=== PATIENT | female | born 1935 | race Caucasian/White ===

== ENCOUNTER 2024-07-06 16:55 | Inpatient (IN) | payer MEDICARE, BC, SELFPAY ==
[2024-07-06 18:01] VITALS: BP 167/68; PULSE 74; RESP 16; TEMP 37.1; O2SAT 91; BMI 24.6
[2024-07-06 20:15] VITALS: PULSE 74; RESP 16; O2SAT 91
[2024-07-06] MEDS: Senna/Docusate Sodium 1 Tablet 2 TABLET PO (20:38)
[2024-07-06] MEDS: Fluticasone/Salmeterol 232-14 Inhaler 1 PUFF INHALATION (20:38)
--- NOTE | 2024-07-06 20:39 | EX.PCM.HP.RE ---
HPI - General General Date of Admission: 07/06/24 Date of Service: 07/06/24 Chief Complaint: Here for 3 hours daily rehabilitation. [facility] Narrative 07/03/2024 KARMA FALL, is a 89 Female with a pertinent history of COPD, MVR, intracranial aneurysm x 2 presenting with vomiting, dizziness, and vision changes concerning for acute CVA following elective cardiac catheterization. Patient had elective cardiac catheterization revealing nonobstructive coronary artery disease. In recovery, she began having dizziness, blurred vision, right sided headache, and vomiting with associated marked hypertension, peak blood pressure 246/133. Patient had nystagmus. Benadryl and Compazine not helpful, stroke alert called. Transferred to [facility] ER for evaluation. NIHSS 2, neurology consulted. CT head negative for bleeding, CTA head/neck negative LVO. TNK not given because working diagnosis was NOT a stroke. Patient diagnosed with acute right cerebellar stroke. Blood pressure well controlled with hypertension medications. No anticoagulation due to history of intracranial aneurysm. Aspirin, Statin for CAD. CKD stage 3, monitored. 07/06/2024 Admit to for 3 hours daily rehabilitation, strengthening, prior to discharge home alone. [facility] Medical History (Updated 07/06/24 @ 20:[address] Harrison Brooke MD) History of left heart catheterization Aneurysm Stroke/cerebrovascular accident Coronary artery disease COPD (chronic obstructive pulmonary disease) Hypothyroidism Kidney disease Hypertension Home Medications ?Medication ?Instructions ?Recorded ?Last Taken ?Type albuterol sulfate 2.5 mg/3 mL 2.5 mg inhalation 4X/DAY PRN PRN 07/06/24 Unknown History (0.083 %) solution for nebulization wheezing amlodipine 5 mg tablet 5 mg PO DAILY BP 07/06/24 07/06/24 History ascorbic acid (vitamin C) 500 mg 500 mg PO DAILY Supplement 07/06/24 07/06/24 History capsule aspirin 81 mg capsule 81 mg PO DAILY Heart health 07/06/24 07/06/24 History cholecalciferol (vitamin D3) 50 50 mcg PO DAILY supplement 07/06/24 Unknown History mcg (2,000 unit) capsule fluticasone propionate 230 2 puff inhalation BID SOB 07/06/24 Unknown History mcg-salmeterol 21 mcg/actuation HFA inhaler (Advair HFA) lisinopril 10 mg tablet 10 mg PO DAILY BP 07/06/24 07/06/24 History rosuvastatin 20 mg tablet (Crestor) 20 mg PO DAILY cholesterol 07/06/24 07/05/24 History vitamin B complex (Vitamins B 1 cap PO DAILY supplement 07/06/24 Unknown History Complex capsule) Allergy/AdvReac Type Severity Reaction Status Date / Time Sulfa (Sulfonamide Allergy Rash Verified 07/06/24 18:40 Antibiotics) (sulfa drugs) Egg Derived (eggs - derived) AdvReac gi upset Verified 07/06/24 18:40 Family History (Updated 07/06/24 @ 20:[address] Harrison Brooke MD) Mother Breast cancer Father Heart disease Brother Myocardial infarction Brother Brain cancer Surgical History (Updated 07/06/24 @ 18:35 by Beto Berry) History of cholecystectomy H/O: hysterectomy Social History (Updated 07/06/24 @ 20:[address] Harrison Brooke MD) household members: none Smoking Status: Former smoker alcohol intake: never substance use type: does not use ROS Constitutional Constitutional: Denies chills, fever(s) or weight gain ENT HEENT: Denies headache(s), nasal congestion or nasal discharge Cardiovascular Cardiovascular: Denies chest pain or palpitations Respiratory/Chest Respiratory/Chest: Denies cough, excessive phlegm production or shortness of breath with exertion Gastrointestinal Gastrointestinal: Denies abdominal pain, nausea or vomiting Genitourinary Genitourinary: Denies dysuria Musculoskeletal Musculoskeletal: Denies joint pain or joint swelling Integumentary Integumentary: Denies rash or wounds Neurologic Neurologic: Reports headache(s); Denies focal weakness, numbness or tingling Psychiatric Psychiatric: Denies anxiety, auditory hallucinations, depression, homicidal ideation or suicidal ideation Vital Signs Vital Signs Vital Signs: 07/06/24 18:01 Temperature 98.8 F Temperature Source Oral Pulse Rate 74 Respiratory Rate 16 Blood Pressure 167/68 H Blood Pressure Mean 101 Blood Pressure Source Monitor Blood Pressure Position Semi-Fowlers Blood Pressure Location Left Arm Pulse Ox 91 Oxygen Delivery Method Room Air Weight Weight: 57.2 kg Body Mass Index (BMI) 24.6 Indicators for Scoring Admitted with or Primary Diagnosis of CVA/Stroke: Yes Hx of CVA/Stroke: No Modified Ashok Score MRS Score at time of Evaluation: 3-Moderate disability NIHSS NIHSS 1a. Level of Consciousness: Alert; keenly responsive 1b. LOC Questions: Answers BOTH questions correctly. 1c. LOC Commands: Performs both tasks correctly. 2. Best Gaze: Normal 3. Visual: No visual loss 4. Facial Palsy: Normal symmetrical movements 5a. Left Arm: No drift; arm holds 90 (or 45) degrees for full 10 seconds 5b. Right Arm: No drift; arm holds 90 (or 45) degrees for full 10 seconds 6a. Left Leg: No drift; leg holds 30-degree position for full 5 seconds 6b. Right Leg: No drift; leg holds 30-degree position for full 5 seconds 7. Limb Ataxia: Absent 8. Sensory: Normal; no sensory loss 9. Best Language: No aphasia; normal 10. Dysarthria: Normal 11. Extinction and Inattention: No abnormality Total: 0 Stroke Questions Stroke Team Activated: Yes a.Reviewed Inclusion/Exclusion criteria: Yes Was Patient considered for Endovascular Intervention?: No IV Thrombolytic Administered: No No contraindications from thrombolytic administration: No Risks, Benefits, Alternatives Discussed: Yes Not given: Patient refusal: No Physical Exam Const alert General Appearance: cooperative HEENT normocephalic Eyes PERRL and EOMs intact bilaterally Neck supple, no JVD and no carotid bruits Resp normal respiratory effort, normal air movement and clear to auscultation bilaterally Cardio regular rate and regular rhythm GI normal to inspection, nondistended, normoactive bowel sounds, non-tender and non-distended Extremity normal capillary refill General Extremity: Negative for edema Skin no rashes or lesions noted General Skin Exam: no breakdown Psych affect normal Appearance: appropriate Assessment & Plan Assessment/Plan (1) Debility: (2) Stroke/cerebrovascular accident: (3) (HFpEF) heart failure with preserved ejection fraction: (4) Hyperlipidemia: (5) Intracranial aneurysm: (6) GERD (gastroesophageal reflux disease): (7) Chronic kidney disease, stage 3a: (8) COPD (chronic obstructive pulmonary disease): (9) Raynaud phenomenon: (10) Hypertensive urgency: (11) Hypothyroidism: (12) Mitral regurgitation: PLAN: Plan 89 year old female with below past medical history hospitalized for right cerebellar stroke, hypertensive urgency, after elective cardiac catheterization, admitted to for 3 hours daily rehabilitation, strengthening, prior to discharge home alone. Debility - PT/OT/ST. Pain - Tylenol 1000mg q6 prn pain (1-10). Bowel - senna/colace 2 tablets bid, Dulcolax 10mg pr x 1 prn, MOM 30mL po x 1 prn. Stroke - Aspirin 81mg daily. Hypertension - Lisinopril 10mg daily, Amlodipine 5mg daily. COPD - Fluticasone/Salmeterol 232-14 1 puff q12, Albuterol 2.5mg 4x/day prn. Vitamin C deficiency - Vitamin C 500mg daily. Vitamin D deficiency - D3 50mcg daily Vitamin B12 deficiency - B12 500mcg daily. Hyperlipidemia - Atorvastatin 40mg qhs.
[2024-07-07 00:45] VITALS: BMI 24.6
[2024-07-07 05:12] VITALS: BP 134/67; PULSE 65; RESP 16; TEMP 36.7; O2SAT 94
[2024-07-07 06:04] LABS: Absolute Neutrophil Count 4.6 X10^3/uL (2.0-7.7); Basophil# 0.04 X10^3/uL; Basophil% 0.5 % (0-1); Eosinophil# 0.25 X10^3/uL; Eosinophils% 3.1 % (0-5); Hemoglobin 13.6 g/dL (12.0-15.0); Lymphocyte % 30.8 % (19-41); Mean Corp Hgb Conc 33.2 g/dL (32-36); Mean Corpuscular Hgb 30.8 pg (27.0-32.0); Mean Platelet Vol. 9.7 fl (6.2-12.0); Monocyte# 0.65 X10^3/uL; NRBC Flagged by Analyzer 0 % (0-5); Neutrophil # 4.64 X10^3/uL (2.7-7.7); Neutrophil % 57.1 % (47-70); Platelet Count 266 K/mm3 (150-450); RBC Distribution Width CV 14.3 % (11.6-14.6); RBC Distribution Width SD 48.8 fl (35.1-43.9); Red Blood Count 4.41 M/mm3 (4.2-5.4); White Blood Count 8.1 K/mm3 (4.4-11.0)
[2024-07-07 06:46] LABS: Magnesium 1.9 mg/dL (1.5-2.2)
[2024-07-07 06:48] LABS: ALB/GLOB Ratio 1.5 RATIO (0.9-2.4); AST(SGOT) 36 U/L (<=31); Alanine Aminotransfer ALT/SGPT 19 U/L (<=34); Albumin, Serum 3.4 g/dL (3.4-4.8); Alkaline Phosphatase 65 U/L (35-104); Anion Gap 10 (5-15); BUN 15 mg/dL (4-19); BUN/Creat Ratio 15.1 RATIO (10-20); Calcium,Total 9.4 mg/dL (7.6-11.0); Chloride 104 mmol/L (98-108); Creatinine, Serum 0.96 mg/dL (0.70-1.20); EST Glomerular Filtration Rate 57 (>60); Estimated Creatinine Clearance 32.71 ml/min (50-250); Globulin 2.3 g/dL (2.2-4.2); Glucose 92 mg/dL (70-99); Potassium 4.4 mmol/L (3.3-5.1); Protein, Total 5.7 g/dL (5.9-8.4); Sodium Level 137 mmol/L (133-145); Total Bilirubin 0.56 mg/dL (0.00-1.30)
--- NOTE | 2024-07-07 07:58 | PN.REHAB_ITS ---
Subjective Subjective Patient seen, examined. She slept very well, therapy going well. She is eating breakfast in bed. No dizziness, no nausea, no room spinning, but she does admit when she stands up to walk, she feels alittle off kilter. She has mild right posterior headache, and right frontal headache, but manageable, I think related to her right cerebellar stroke. Objective Data Objective Data Vital Signs: Vital Signs Temp Pulse Resp BP Pulse Ox O2 Del Method 98.1 F 65 16 134/67 H 94 Room Air 07/07/24 05:12 07/07/24 05:12 07/07/24 05:12 07/07/24 05:12 07/07/24 05:12 07/07/24 05:12 Oxygen Delivery Method Room Air Weight: 57.2 kg Body Mass Index (BMI) 24.6 Intake & Output: Intake and Output for Last 24 Hours 07/05/24 07/06/24 07/07/24 23:59 23:59 23:59 Intake Total 275 / 275 Output Total 250 / 250 300 / 300 Balance -300 / -300 Lab / Micro Data 07/07/24 05:15 07/07/24 05:15 Labs: Laboratory Results - last 24 hr 07/07/24 05:15: WBC 8.1, RBC 4.41, Hgb 13.6, Hct 41.0, MCV 93.0, MCH 30.8, MCHC 33.2, RDW Std Deviation 48.8 H, RDW Coeff of Odette 14.3, Plt Count 266, MPV 9.7, Immature Gran % (Auto) 0.500, Neut % (Auto) 57.1, Lymph % (Auto) 30.8, Henderson % (Auto) 8.0, Eos % (Auto) 3.1, Baso % (Auto) 0.5, Absolute Neuts (auto) 4.6, Absolute Lymphs (auto) 2.50, Nucleated RBC % 0, Sodium 137, Potassium 4.4, Chloride 104, Carbon Dioxide 23.0, Anion Gap 10, BUN 15, Creatinine 0.96, Estim Creat Clear Calc 32.71 L, Est GFR (MDRD) Non-Af 57 L, BUN/Creatinine Ratio 15.1, Glucose 92, Calcium 9.4, Phosphorus 3.0, Magnesium 1.9, Total Bilirubin 0.56, A ST 36 H, ALT 19, Alkaline Phosphatase 65, Total Protein 5.7 L, Albumin 3.4, Globulin 2.3, Albumin/Globulin Ratio 1.5 Indicators for Scoring Admitted with or Primary Diagnosis of CVA/Stroke: Yes Hx of CVA/Stroke: Yes Modified Cache Score MRS Score at time of Evaluation: 3-Moderate disability Physical Exam Const alert General Appearance: cooperative HEENT normocephalic Eyes PERRL and EOMs intact bilaterally Neck supple, no JVD and no carotid bruits Resp normal respiratory effort, normal air movement and clear to auscultation bilaterally Cardio regular rate and regular rhythm GI normal to inspection, nondistended, normoactive bowel sounds, non-tender and non-distended Extremity normal capillary refill General Extremity: Negative for edema Skin no rashes or lesions noted General Skin Exam: no breakdown Psych affect normal Appearance: appropriate Assessment & Plan Assessment/Plan (1) Debility: (2) Stroke/cerebrovascular accident: (3) (HFpEF) heart failure with preserved ejection fraction: (4) Hyperlipidemia: (5) Intracranial aneurysm: (6) GERD (gastroesophageal reflux disease): (7) Chronic kidney disease, stage 3a: (8) COPD (chronic obstructive pulmonary disease): (9) Raynaud phenomenon: (10) Hypertensive urgency: (11) Hypothyroidism: (12) Mitral regurgitation: PLAN: Plan 89 year old female with below past medical history hospitalized for right cerebellar stroke, hypertensive urgency, after elective cardiac catheterization, admitted to for 3 hours daily rehabilitation, strengthening, prior to discharge home alone. * Debility - PT/OT/ST. * Pain - Tylenol 1000mg q6 prn pain (1-10). * Bowel - senna/colace 2 tablets bid, Dulcolax 10mg pr x 1 prn, MOM 30mL po x 1 prn. * Stroke - Aspirin 81mg daily. * Hypertension - Lisinopril 10mg daily, Amlodipine 5mg daily. * COPD - Fluticasone/Salmeterol 232-14 1 puff q12, Albuterol 2.5mg 4x/day prn. * Vitamin C deficiency - Vitamin C 500mg daily. * Vitamin D deficiency - D3 50mcg daily * Vitamin B12 deficiency - B12 500mcg daily. * Hyperlipidemia - Atorvastatin 40mg qhs.
[2024-07-07] MEDS: Fluticasone/Salmeterol 232-14 Inhaler 1 PUFF INHALATION ×2 (08:26→20:20)
[2024-07-07] MEDS: Aspirin 81 MG TAB.CHEW PO (08:26)
[2024-07-07] MEDS: Atorvastatin Calcium 40 MG Tablet PO (08:27)
[2024-07-07] MEDS: Senna/Docusate Sodium 1 Tablet 2 TABLET PO ×2 (08:27→20:20)
[2024-07-07] MEDS: amLODIPine 5 MG Tablet PO (08:27)
[2024-07-07] MEDS: Cholecalciferol (VIT D3) 25 MCG TABLET (1,000 UNITS) 50 MCG PO (08:28)
[2024-07-07] MEDS: Ascorbic Acid 500 MG Tablet PO (08:28)
[2024-07-07] MEDS: Lisinopril 10 MG Tablet PO (08:28)
[2024-07-07] MEDS: Cyanocobalamin 500 MCG Tablet PO (08:28)
[2024-07-07 08:40] VITALS: RESP 16; O2SAT 93
[2024-07-07] MEDS: Enoxaparin 40 MG/0.4 ML Syringe SC (10:30)
--- NOTE | 2024-07-07 14:27 | REHABEVAL_ITS ---
Admission Information Primary Diagnosis:: Right cerebellar stroke. Status Changes from Prescreening?: No changes Identified Actual Problem List:: Pain, ALteration in Cmfrt, Cognitve Impr/Memory Loss, Mobility Impaired, Self Care Deficit, Ineffective Communication, Know.Dfct/Disease Process, Know.Dfct of Medicaitons and Alteration-Leisure Activ. Potential Problem List:: DVT, Bleeding, Infection, UTI, Aspiration, Falls, Skin Integrity and Depression Risk of Complications DVT: LMWH, NATALIE Hose and Sequential Compression Device Bleeding: Monitor Lab Values, Nursing to Teach Precautions for anti-coagulation therapy., Wound, if applicable, to be assessed every shift. and Stroke patients assessed for lethargy or change in status. Infection: Clinical Staff to Monitor for S/S of infection: and S/S of infection include fever, redness, warmth, etc. Urinary Tract Infection: Monitor for frequency, burning, discomfort, or incontinence. and Nursing will obtain urine sample for urinalysis and C&S when ordered. Aspiration: Clinical staff will monitor for coughing, drooling, congestion., Speech will evaluate swallowing and dsyphasia. and Nursing will monitor patient swallowing during meals. Falls: Patient will be evaluated for Fall Precautions and Patient will be placed on Fall Precautions as indicated per protocol. Skin Breakdown: Nursing will assess skin daily using assessment tool. and Nursing will place on Skin Breakdown Precautions as indicated. Pain: Clinical staff will assess patient's pain level per protocol., Medications will be given, if needed, and the pain level reassessed. and Other methods: Massage, distraction, decrease stimulus, etc. used PRN. Plan of Care Patient requires physician specializing in physical medicine and rehab oversight to provide close medical supervision of rehab issues including: Pain Management, Sleep Problems, Bowel and Bladder, Medical and co-morbidity Management, DVT prophylaxis, Rehabilitation Leadership and Coordination of treatment team Patient needs Physical Therapy: For a minimum of 1 hour and At least 5 out of 7 days Patient needs Physical Therapy to improve:: Mobility, Strengthening, Transfers, Stretching, ROM, Endurance, Stairs, Gait and Balance Patient needs Occupational Therapy: For a minimum of 1 hour and At least 5 out of 7 days Patient needs Occupational Therapy to improve ADL's incl.: Eating, Grooming, Bathing, Dressing, Toileting, Toilet transfers, Community Reintegration, Higher functioning activities, Household tasks, Adaptive Equipment, Splinting and Other activities as determined Patient requires speech therapy: For a minimum of 1 hour and At least 5 out of 7 days Patient requires speech therapy for: Swallowing, Cognition, Language Skills and Compensatory Strategies Patient requires 24/7 Rehabilitation Nursing for: Pain Issues, Identifying and preventing risk factors, Monitoring and reporting current medical conditions, Assisting with ambulation, transfer, and all ADL's, Teaching patients about disease process and medications, Family teaching, Providing safe environment, Bowel and Bladder Issues, Skin integrity and Medication Management Patient needs Line Maintenance Technician/ Case Management for: Discharge Planning, Arranging Home Equipment or Services and Family Interventions Patient needs Dietary and Nutrition Services for: Adequate Nutrition, Nutritional Supplements and Nutritional Education Goals Goals Patient will remain: free from falls and or injury at time of discharge. Patient will complete transfers from bed to chair at: Standby Assist. (CGA.) Patient will ambulate: with LRD and - (225 feet sup.) Patient will complete upper body dressing at: MOD I level of assist. Patient will complete lower body dressing at: MOD I level of assist. (with AE.) Patient will complete toilet transfer at: MOD I level of assist. Patient will perform bathing at: MOD I level of assist. (with AE.) Patient will perform Tub/Shower transfer at: Standby Assist. (DME prn Sup.) Patient will complete grooming at: MOD I level of assist. Patient will complete home management skills at: MOD I level of assist. Patient will achieve: at MOD I assist Patient will have pain level of: - (2 steps with rail) Patient's skin will: remain intact and free from infection. Patient will receive: adequate nutrition. Discharge Planning Pt Prognosis for Sig. Practical Improv. w/in Reasonable Time: Good Estimated Length of stay (days): 14 Anticipated D/C Destination: Home with Home Health Was Preadmission Assessment Accurate?: Yes
--- NOTE | 2024-07-07 14:33 | NURSING ---
Rody from cardiology called us back and let us know that the patient was ok to shower
--- NOTE | 2024-07-07 15:04 | CHAPLAIN ---
Type of Pastoral Visit _x__ Initial Visit ___ Follow-up Visit ___ On-call Visit ___ General Patient Visit ___ Spiritual Assessment ___ Family Conference ___ Bereavement ___ Rapid Response ___ Code Blue ___ Other (describe below) Pastoral Care Referral From _x__ Patient ___ Family ___ Nurse ___ Physician ___ [place] Operator ___ Language Asst ___ Other (describe below) Sacrament/Intervention _x__ Active listening ___ Anointing ___ Holiness ___ Bereavement ___ Communion ___ Betsy exploration ___ _x__ Life review _x__ Prayer ___ Reconciliation ___ Sacrament of Sick ___ Supportive presence ___ Wedding ___ Other (describe below) Pastoral Comments patient is napping but awoke easily to her name; pt is pleasant and welcoming asking simply for a prayer; pt states that she enjoys reading The Daily Bread and was glad that she was given one here; pt has family in the area and she is expecting them to visit soon; pt denies other needs or concerns
[2024-07-07] MEDS: Ensure Plus High Protein 120 ML LIQUID PO (16:55)
[2024-07-07 17:00] VITALS: BMI 24.6
[2024-07-07 18:00] VITALS: BP 137/56; PULSE 60; RESP 17; TEMP 36.3; O2SAT 91
[2024-07-07 20:20] VITALS: PULSE 60; RESP 17; O2SAT 91; BMI 24.6
[2024-07-08 05:49] VITALS: BP 146/77; PULSE 75; RESP 16; TEMP 36.9; O2SAT 95
[2024-07-08 08:30] VITALS: BP 145/67; PULSE 77
[2024-07-08] MEDS: Fluticasone/Salmeterol 232-14 Inhaler 1 PUFF INHALATION ×2 (08:42→21:55)
[2024-07-08] MEDS: Ensure Plus High Protein 120 ML LIQUID PO ×3 (08:42→16:56)
[2024-07-08] MEDS: Atorvastatin Calcium 40 MG Tablet PO (08:43)
[2024-07-08] MEDS: Cyanocobalamin 500 MCG Tablet PO (08:43)
[2024-07-08] MEDS: Aspirin 81 MG TAB.CHEW PO (08:43)
[2024-07-08] MEDS: amLODIPine 5 MG Tablet PO (08:43)
[2024-07-08] MEDS: Enoxaparin 40 MG/0.4 ML Syringe SC (08:47)
[2024-07-08 09:17] VITALS: BP 150/68; PULSE 78
[2024-07-08] MEDS: Senna/Docusate Sodium 1 Tablet 2 TABLET PO (09:36)
[2024-07-08] MEDS: Cholecalciferol (VIT D3) 25 MCG TABLET (1,000 UNITS) 50 MCG PO (09:36)
[2024-07-08] MEDS: Lisinopril 10 MG Tablet PO (09:36)
[2024-07-08] MEDS: Ascorbic Acid 500 MG Tablet PO (09:36)
[2024-07-08] MEDS: Meclizine HCl 25 MG Tablet PO ×3 (10:09→21:56)
[2024-07-08] MEDS: Ondansetron ODT 4 MG Tablet 8 MG PO (10:09)
[2024-07-08 15:29] VITALS: BMI 24.6
[2024-07-08 18:00] VITALS: BP 145/55; PULSE 66; RESP 18; TEMP 37; O2SAT 93
[2024-07-08 22:00] VITALS: BP 129/67; PULSE 74; RESP 18; TEMP 36.6; O2SAT 97
[2024-07-08 22:39] VITALS: BMI 24.6
[2024-07-09 05:34] VITALS: BP 149/69; PULSE 73; RESP 18; TEMP 37.3; O2SAT 97
[2024-07-09] MEDS: Enoxaparin 40 MG/0.4 ML Syringe SC (08:40)
[2024-07-09] MEDS: Ensure Plus High Protein 120 ML LIQUID PO ×3 (08:40→17:48)
[2024-07-09] MEDS: Fluticasone/Salmeterol 232-14 Inhaler 1 PUFF INHALATION ×2 (08:40→20:24)
[2024-07-09] MEDS: Cyanocobalamin 500 MCG Tablet PO (08:41)
[2024-07-09] MEDS: Cholecalciferol (VIT D3) 25 MCG TABLET (1,000 UNITS) 50 MCG PO (08:41)
[2024-07-09] MEDS: Lisinopril 10 MG Tablet PO (08:41)
[2024-07-09] MEDS: Senna/Docusate Sodium 1 Tablet 2 TABLET PO ×2 (08:41→20:24)
[2024-07-09] MEDS: Aspirin 81 MG TAB.CHEW PO (08:41)
[2024-07-09] MEDS: Ascorbic Acid 500 MG Tablet PO (08:41)
[2024-07-09] MEDS: amLODIPine 5 MG Tablet PO (08:42)
[2024-07-09] MEDS: Atorvastatin Calcium 40 MG Tablet PO (08:42)
[2024-07-09 08:44] VITALS: BP 131/63; PULSE 75
[2024-07-09 10:08] VITALS: BMI 24.6
[2024-07-09] MEDS: Meclizine HCl 25 MG Tablet PO (14:49)
[2024-07-09 18:00] VITALS: BP 116/71; PULSE 71; RESP 16; TEMP 37; O2SAT 92
[2024-07-09 21:27] VITALS: BMI 24.6
[2024-07-10] MEDS: Meclizine HCl 25 MG Tablet PO (05:39)
[2024-07-10 05:42] VITALS: BP 115/53; PULSE 61; RESP 16; TEMP 37.1; O2SAT 94
--- NOTE | 2024-07-10 07:50 | PN.REHAB_ITS ---
Subjective Subjective Patient seen, examined. Over the weekend, she complained of dizziness, nausea. Meclizine added, Zofran added, she is now too sleepy from the Meclizine. Objective Data Objective Data Vital Signs: Vital Signs Temp Pulse Resp BP Pulse Ox O2 Del Method 98.8 F 61 16 115/53 L 94 Room Air 07/10/24 05:42 07/10/24 05:42 07/10/24 05:42 07/10/24 05:42 07/10/24 05:42 07/10/24 05:42 Oxygen Delivery Method Room Air Weight: 57.2 kg Body Mass Index (BMI) 24.6 Intake & Output: Intake and Output for Last 24 Hours 07/08/24 07/09/24 07/10/24 23:59 23:59 23:59 Intake Total 1400 / 1400 1040 / 1040 Output Total 0 / 0 750 / 750 300 / 300 Balance 1400 / 1400 290 / 290 -300 / -300 Lab / Micro Data 07/07/24 05:15 07/07/24 05:15 Indicators for Scoring Admitted with or Primary Diagnosis of CVA/Stroke: Yes Hx of CVA/Stroke: Yes Modified [place] Score MRS Score at time of Evaluation: 4-Moderate/severe disability Physical Exam Const alert General Appearance: cooperative HEENT normocephalic Eyes PERRL and EOMs intact bilaterally Neck supple, no JVD and no carotid bruits Resp normal respiratory effort, normal air movement and clear to auscultation bilaterally Cardio regular rate and regular rhythm GI normal to inspection, nondistended, normoactive bowel sounds, non-tender and non-distended Extremity normal capillary refill General Extremity: Negative for edema Skin no rashes or lesions noted General Skin Exam: no breakdown Psych affect normal Appearance: appropriate Assessment & Plan Assessment/Plan (1) Debility: (2) Stroke/cerebrovascular accident: (3) (HFpEF) heart failure with preserved ejection fraction: (4) Hyperlipidemia: (5) Intracranial aneurysm: (6) GERD (gastroesophageal reflux disease): (7) Chronic kidney disease, stage 3a: (8) COPD (chronic obstructive pulmonary disease): (9) Raynaud phenomenon: (10) Hypertensive urgency: (11) Hypothyroidism: (12) Mitral regurgitation: PLAN: Plan 89 year old female with below past medical history hospitalized for right cerebellar stroke, hypertensive urgency, after elective cardiac catheterization, admitted to for 3 hours daily rehabilitation, strengthening, prior to discharge home alone. * Debility - PT/OT/ST. * Pain - Tylenol 1000mg q6 prn pain (1-10). * Bowel - senna/colace 2 tablets bid, Dulcolax 10mg pr x 1 prn, MOM 30mL po x 1 prn. * Stroke - Aspirin 81mg daily. * Hypertension - Lisinopril 10mg daily, Amlodipine 5mg daily. * COPD - Fluticasone/Salmeterol 232-14 1 puff q12, Albuterol 2.5mg 4x/day prn. * Vitamin C deficiency - Vitamin C 500mg daily. * Vitamin D deficiency - D3 50mcg daily * Vitamin B12 deficiency - B12 500mcg daily. * Hyperlipidemia - Atorvastatin 40mg qhs. * Dizziness - Meclizine 25mg tid too strong, lower to Meclizine 12.5mg bid. * Nausea - Zofran odt 8mg q8 prn.
[2024-07-10] MEDS: Ensure Plus High Protein 120 ML LIQUID PO (08:07)
[2024-07-10] MEDS: amLODIPine 5 MG Tablet PO (08:07)
[2024-07-10] MEDS: Cyanocobalamin 500 MCG Tablet PO (08:07)
[2024-07-10] MEDS: Cholecalciferol (VIT D3) 25 MCG TABLET (1,000 UNITS) 50 MCG PO (08:07)
[2024-07-10] MEDS: Fluticasone/Salmeterol 232-14 Inhaler 1 PUFF INHALATION ×2 (08:07→20:29)
[2024-07-10] MEDS: Ascorbic Acid 500 MG Tablet PO (08:08)
[2024-07-10] MEDS: Enoxaparin 40 MG/0.4 ML Syringe SC (08:08)
[2024-07-10] MEDS: Senna/Docusate Sodium 1 Tablet 2 TABLET PO ×2 (08:08→20:30)
[2024-07-10] MEDS: Aspirin 81 MG TAB.CHEW PO (08:08)
[2024-07-10] MEDS: Lisinopril 10 MG Tablet PO (08:09)
[2024-07-10] MEDS: Atorvastatin Calcium 40 MG Tablet PO (08:09)
[2024-07-10 08:23] VITALS: BMI 24.6
--- NOTE | 2024-07-10 09:49 | CASEMGMT ---
Team meeting held with pt present. PT/OT/SN/ provided updates on pt progress since admission to the Rehab unit. Pt is also receiving speech therapy. Pt is making progress with therapies and participating well. Pt lives at home alone in a one story home and plans to return home at time of discharge. Pt was independent with ADLS/IADLS prior to hospitalization. SW provided information on Medicare coverage of Inpatient Rehab and will follow for discharge planning at the appropriate time. Will continue with treatment plan at this time and ReTeam next week. AGNES Gillespie
--- NOTE | 2024-07-10 10:21 | CASEMGMT ---
Social Work SW spoke with pt's dgt Neeru on the phone and provided update for the team meeting today. AGNES Gillespie
--- NOTE | 2024-07-10 10:31 | CASEMGMT ---
Social Work Pt's family provided a copy of pts living will and health care power of trademark attorney which names pt's dgt Neeru Edmonds as decision maker. Copies placed on pt chart. AGNES Gillespie
[2024-07-10] MEDS: Meclizine 12.5 MG Tablet PO (14:17)
[2024-07-10 18:00] VITALS: BP 160/48; PULSE 68; RESP 16; TEMP 36.6; O2SAT 96
[2024-07-10 20:25] VITALS: PULSE 68; RESP 16; O2SAT 96
[2024-07-10 20:29] VITALS: BMI 24.6
[2024-07-10 20:36] VITALS: BMI 24.6
[2024-07-11] MEDS: Meclizine 12.5 MG Tablet PO ×2 (04:52→14:49)
[2024-07-11 05:21] VITALS: BP 133/69; PULSE 67; RESP 15; TEMP 36.4; O2SAT 93
[2024-07-11] MEDS: Fluticasone/Salmeterol 232-14 Inhaler 1 PUFF INHALATION ×2 (08:18→20:26)
[2024-07-11] MEDS: amLODIPine 5 MG Tablet PO (08:18)
[2024-07-11] MEDS: Enoxaparin 40 MG/0.4 ML Syringe SC (08:18)
[2024-07-11] MEDS: Cholecalciferol (VIT D3) 25 MCG TABLET (1,000 UNITS) 50 MCG PO (08:18)
[2024-07-11] MEDS: Atorvastatin Calcium 40 MG Tablet PO (08:19)
[2024-07-11] MEDS: Lisinopril 10 MG Tablet PO (08:19)
[2024-07-11] MEDS: Senna/Docusate Sodium 1 Tablet 2 TABLET PO ×2 (08:19→20:27)
[2024-07-11] MEDS: Aspirin 81 MG TAB.CHEW PO (08:19)
[2024-07-11] MEDS: Ascorbic Acid 500 MG Tablet PO (08:19)
[2024-07-11] MEDS: Cyanocobalamin 500 MCG Tablet PO (08:19)
--- NOTE | 2024-07-11 08:20 | PN.REHAB_ITS ---
Subjective Subjective Patient seen, examined. She is eating breakfast, she appears much more awake today, her dizziness is much better, and so is her nausea. Objective Data Objective Data Vital Signs: Vital Signs Temp Pulse Resp BP Pulse Ox O2 Del Method 97.6 F L 67 15 133/69 H 93 Room Air 07/11/24 05:21 07/11/24 05:21 07/11/24 05:21 07/11/24 05:21 07/11/24 05:21 07/11/24 05:21 Oxygen Delivery Method Room Air Weight: 57.2 kg Body Mass Index (BMI) 24.6 Intake & Output: Intake and Output for Last 24 Hours 07/09/24 07/10/24 07/11/24 23:59 23:59 23:59 Intake Total 1040 / 1040 820 / 820 350 / 350 Output Total 750 / 750 1125 / 1125 300 / 300 Balance 290 / 290 -305 / -305 50 / 50 Lab / Micro Data 07/07/24 05:15 07/07/24 05:15 Indicators for Scoring Admitted with or Primary Diagnosis of CVA/Stroke: Yes Hx of CVA/Stroke: Yes Modified Ashok Score MRS Score at time of Evaluation: 4-Moderate/severe disability Physical Exam Const alert General Appearance: cooperative HEENT normocephalic Eyes PERRL and EOMs intact bilaterally Neck supple, no JVD and no carotid bruits Resp normal respiratory effort, normal air movement and clear to auscultation bilaterally Cardio regular rate and regular rhythm GI normal to inspection, nondistended, normoactive bowel sounds, non-tender and non-distended Extremity normal capillary refill General Extremity: Negative for edema Skin no rashes or lesions noted General Skin Exam: no breakdown Psych affect normal Appearance: appropriate Assessment & Plan Assessment/Plan (1) Debility: (2) Stroke/cerebrovascular accident: (3) (HFpEF) heart failure with preserved ejection fraction: (4) Hyperlipidemia: (5) Intracranial aneurysm: (6) GERD (gastroesophageal reflux disease): (7) Chronic kidney disease, stage 3a: (8) COPD (chronic obstructive pulmonary disease): (9) Raynaud phenomenon: (10) Hypertensive urgency: (11) Hypothyroidism: (12) Mitral regurgitation: PLAN: Plan 89 year old female with below past medical history hospitalized for right cerebellar stroke, hypertensive urgency, after elective cardiac catheterization, admitted to for 3 hours daily rehabilitation, strengthening, prior to discharge home alone. * Debility - PT/OT/ST. * Pain - Tylenol 1000mg q6 prn pain (1-10). * Bowel - senna/colace 2 tablets bid, Dulcolax 10mg pr x 1 prn, MOM 30mL po x 1 prn. * Stroke - Aspirin 81mg daily. * Hypertension - Lisinopril 10mg daily, Amlodipine 5mg daily. * COPD - Fluticasone/Salmeterol 232-14 1 puff q12, Albuterol 2.5mg 4x/day prn. * Vitamin C deficiency - Vitamin C 500mg daily. * Vitamin D deficiency - D3 50mcg daily * Vitamin B12 deficiency - B12 500mcg daily. * Hyperlipidemia - Atorvastatin 40mg qhs. * Dizziness - Meclizine 25mg tid too strong, lower to Meclizine 12.5mg bid, working much better without the sedation. * Nausea - Zofran odt 8mg q8 prn.
[2024-07-11] MEDS: Magnesium Hydroxide 30 ML UDC PO (12:39)
--- NOTE | 2024-07-11 13:43 | CASEMGMT ---
Social Work SW phoned dtr to update on Medicare approved days of 13 days with DC 07/19. Dtr concerned with pt being ready to be home at that time. Inquired about primary and secondary insurance coverage. SW educated to IRU only accepting primary insurance; a SNF accepts primary and secondary insurance, for example. SW explained appeal rights and the potential financial liability of the daily RU rate. Dtr frantically speaking expressing uncertainty with DC plan. SW assured dtr this worker will assist with DC plans. If pt cannot return home at that time, this worker can assist with referrals to SNFs. Also educated to home with skilled and nonskilled HHC. Dtr explained pt does not like people coming into her home, so that likely will not be a viable option. Dtr asked to meet with this worker on 07/14. SW agreed and scheduled time for 1500. SW agreed to bring resources for SNFs, skilled and nonskilled HHC. Dtr appreciative. SW explained that will allow the next few days to determine pt's updated LOF and make recommendations for DC. Dtr agrees. SW will continue to follow. Mony Pettit STEWARD/STEWARDESS BATH DOUGH MIXER OPERATOR
[2024-07-11 13:47] VITALS: BMI 24.6
[2024-07-11 18:00] VITALS: BP 129/52; PULSE 62; RESP 18; TEMP 36.7; O2SAT 96
[2024-07-11 20:30] VITALS: PULSE 62; RESP 18; O2SAT 96; BMI 24.6
[2024-07-11 20:33] VITALS: BMI 24.6
[2024-07-12] MEDS: Meclizine 12.5 MG Tablet PO ×2 (05:04→13:58)
[2024-07-12 05:19] VITALS: BMI 24.8
[2024-07-12] MEDS: Enoxaparin 40 MG/0.4 ML Syringe SC (08:02)
[2024-07-12] MEDS: Senna/Docusate Sodium 1 Tablet 2 TABLET PO ×2 (08:02→20:59)
[2024-07-12] MEDS: amLODIPine 5 MG Tablet PO (08:03)
[2024-07-12] MEDS: Aspirin 81 MG TAB.CHEW PO (08:03)
[2024-07-12] MEDS: Lisinopril 10 MG Tablet PO (08:03)
[2024-07-12] MEDS: Fluticasone/Salmeterol 232-14 Inhaler 1 PUFF INHALATION ×2 (08:03→20:59)
[2024-07-12] MEDS: Cholecalciferol (VIT D3) 25 MCG TABLET (1,000 UNITS) 50 MCG PO (08:03)
[2024-07-12] MEDS: Ascorbic Acid 500 MG Tablet PO (08:03)
[2024-07-12] MEDS: Atorvastatin Calcium 40 MG Tablet PO (08:03)
[2024-07-12] MEDS: Cyanocobalamin 500 MCG Tablet PO (08:03)
--- NOTE | 2024-07-12 08:11 | PN.REHAB_ITS ---
Subjective Subjective Patient seen, examined. She is eating breakfast. She has mild dizziness, but much better, she denies nausea, she is happy with her progress. Objective Data Objective Data Vital Signs: Vital Signs Temp Pulse Resp BP Pulse Ox O2 Del Method 98.1 F 62 18 129/52 H 96 Room Air 07/11/24 18:00 07/11/24 20:30 07/11/24 20:30 07/11/24 18:00 07/11/24 20:30 07/11/24 20:30 Oxygen Delivery Method Room Air Weight: 57.8 kg Body Mass Index (BMI) 24.8 Intake & Output: Intake and Output for Last 24 Hours 07/10/24 07/11/24 07/12/24 23:59 23:59 23:59 Intake Total 820 / 820 1050 / 1050 120 / 120 Output Total 1125 / 1125 690 / 690 450 / 450 Balance -305 / -305 360 / 360 -330 / -330 Lab / Micro Data 07/07/24 05:15 07/07/24 05:15 Indicators for Scoring Admitted with or Primary Diagnosis of CVA/Stroke: Yes Hx of CVA/Stroke: Yes Modified Ashok Score MRS Score at time of Evaluation: 4-Moderate/severe disability Physical Exam Const alert General Appearance: cooperative HEENT normocephalic Eyes PERRL and EOMs intact bilaterally Neck supple, no JVD and no carotid bruits Resp normal respiratory effort, normal air movement and clear to auscultation bilaterally Cardio regular rate and regular rhythm GI normal to inspection, nondistended, normoactive bowel sounds, non-tender and non-distended Extremity normal capillary refill General Extremity: Negative for edema Skin no rashes or lesions noted General Skin Exam: no breakdown Psych affect normal Appearance: appropriate Assessment & Plan Assessment/Plan (1) Debility: (2) Stroke/cerebrovascular accident: (3) (HFpEF) heart failure with preserved ejection fraction: (4) Hyperlipidemia: (5) Intracranial aneurysm: (6) GERD (gastroesophageal reflux disease): (7) Chronic kidney disease, stage 3a: (8) COPD (chronic obstructive pulmonary disease): (9) Raynaud phenomenon: (10) Hypertensive urgency: (11) Hypothyroidism: (12) Mitral regurgitation: PLAN: Plan 89 year old female with below past medical history hospitalized for right cerebellar stroke, hypertensive urgency, after elective cardiac catheterization, admitted to for 3 hours daily rehabilitation, strengthening, prior to discharge home alone. * Debility - PT/OT/ST. * Pain - Tylenol 1000mg q6 prn pain (1-10). * Bowel - senna/colace 2 tablets bid, Dulcolax 10mg pr x 1 prn, MOM 30mL po x 1 prn. * Stroke - Aspirin 81mg daily. * Hypertension - Lisinopril 10mg daily, Amlodipine 5mg daily. * COPD - Fluticasone/Salmeterol 232-14 1 puff q12, Albuterol 2.5mg 4x/day prn. * Vitamin C deficiency - Vitamin C 500mg daily. * Vitamin D deficiency - D3 50mcg daily * Vitamin B12 deficiency - B12 500mcg daily. * Hyperlipidemia - Atorvastatin 40mg qhs. * Dizziness - Meclizine 12.5mg bid. * Nausea - Zofran odt 8mg q8 prn.
[2024-07-12 13:28] VITALS: BMI 24.8
[2024-07-12 17:36] VITALS: BP 142/72; PULSE 63; RESP 17; TEMP 36.5; O2SAT 95
[2024-07-13 00:01] VITALS: BMI 24.8
[2024-07-13] MEDS: Meclizine 12.5 MG Tablet PO ×2 (05:05→14:41)
[2024-07-13] MEDS: Enoxaparin 40 MG/0.4 ML Syringe SC (05:06)
[2024-07-13 05:15] VITALS: BP 125/68; PULSE 70; RESP 16; TEMP 36.1; O2SAT 96
[2024-07-13] MEDS: amLODIPine 5 MG Tablet PO (07:27)
[2024-07-13] MEDS: Ascorbic Acid 500 MG Tablet PO (07:28)
[2024-07-13] MEDS: Lisinopril 10 MG Tablet PO (07:28)
[2024-07-13] MEDS: Cholecalciferol (VIT D3) 25 MCG TABLET (1,000 UNITS) 50 MCG PO (07:28)
[2024-07-13] MEDS: Cyanocobalamin 500 MCG Tablet PO (07:28)
[2024-07-13] MEDS: Aspirin 81 MG TAB.CHEW PO (07:28)
[2024-07-13] MEDS: Fluticasone/Salmeterol 232-14 Inhaler 1 PUFF INHALATION ×2 (07:33→20:39)
--- NOTE | 2024-07-13 07:55 | PN.REHAB_ITS ---
Subjective Subjective Patient seen, examined. Sitting up side of bed, eating breakfast. Some dizziness yesterday, but none this AM, she still feels off balance when up and walking. Objective Data Objective Data Vital Signs: Vital Signs Temp Pulse Resp BP Pulse Ox O2 Del Method 97.0 F L 70 16 125/68 H 96 Room Air 07/13/24 05:15 07/13/24 05:15 07/13/24 05:15 07/13/24 05:15 07/13/24 05:15 07/13/24 05:15 Oxygen Delivery Method Room Air Weight: 57.8 kg Body Mass Index (BMI) 24.8 Intake & Output: Intake and Output for Last 24 Hours 07/11/24 07/12/24 07/13/24 23:59 23:59 23:59 Intake Total 1050 / 1050 940 / 1390 570 / 570 Output Total 690 / 690 1250 / 1250 700 / 700 Balance 360 / 360 -310 / 140 -130 / -130 Lab / Micro Data 07/07/24 05:15 07/07/24 05:15 Indicators for Scoring Admitted with or Primary Diagnosis of CVA/Stroke: Yes Hx of CVA/Stroke: Yes Modified [place] Score MRS Score at time of Evaluation: 4-Moderate/severe disability Physical Exam Const alert General Appearance: cooperative HEENT normocephalic Eyes PERRL and EOMs intact bilaterally Neck supple, no JVD and no carotid bruits Resp normal respiratory effort, normal air movement and clear to auscultation bilaterally Cardio regular rate and regular rhythm GI normal to inspection, nondistended, normoactive bowel sounds, non-tender and non-distended Extremity normal capillary refill General Extremity: Negative for edema Skin no rashes or lesions noted General Skin Exam: no breakdown Psych affect normal Appearance: appropriate Assessment & Plan Assessment/Plan (1) Debility: (2) Stroke/cerebrovascular accident: (3) (HFpEF) heart failure with preserved ejection fraction: (4) Hyperlipidemia: (5) Intracranial aneurysm: (6) GERD (gastroesophageal reflux disease): (7) Chronic kidney disease, stage 3a: (8) COPD (chronic obstructive pulmonary disease): (9) Raynaud phenomenon: (10) Hypertensive urgency: (11) Hypothyroidism: (12) Mitral regurgitation: PLAN: Plan 89 year old female with below past medical history hospitalized for right cerebellar stroke, hypertensive urgency, after elective cardiac catheterization, admitted to for 3 hours daily rehabilitation, strengthening, prior to discharge home alone. * Debility - PT/OT/ST. * Pain - Tylenol 1000mg q6 prn pain (1-10). * Bowel - senna/colace 2 tablets bid, Dulcolax 10mg pr x 1 prn, MOM 30mL po x 1 prn. * Stroke - Aspirin 81mg daily. * Hypertension - Lisinopril 10mg daily, Amlodipine 5mg daily. * COPD - Fluticasone/Salmeterol 232-14 1 puff q12, Albuterol 2.5mg 4x/day prn. * Vitamin C deficiency - Vitamin C 500mg daily. * Vitamin D deficiency - D3 50mcg daily * Vitamin B12 deficiency - B12 500mcg daily. * Hyperlipidemia - Atorvastatin 40mg qhs. * Dizziness - Meclizine 12.5mg bid. * Nausea - Zofran odt 8mg q8 prn.
[2024-07-13 12:44] VITALS: BMI 24.8
[2024-07-13 18:00] VITALS: BP 126/72; PULSE 58; RESP 14; TEMP 36.7; O2SAT 97
[2024-07-13] MEDS: Atorvastatin Calcium 40 MG Tablet PO (20:39)
[2024-07-13] MEDS: Senna/Docusate Sodium 1 Tablet 2 TABLET PO (20:39)
[2024-07-14 00:54] VITALS: BMI 24.8
[2024-07-14 06:00] VITALS: BP 131/62; PULSE 62; RESP 17; TEMP 36.6; O2SAT 94
[2024-07-14] MEDS: Enoxaparin 40 MG/0.4 ML Syringe SC (06:06)
[2024-07-14] MEDS: Meclizine 12.5 MG Tablet PO ×2 (06:06→14:42)
[2024-07-14] MEDS: Fluticasone/Salmeterol 232-14 Inhaler 1 PUFF INHALATION ×2 (08:06→20:20)
[2024-07-14] MEDS: Cholecalciferol (VIT D3) 25 MCG TABLET (1,000 UNITS) 50 MCG PO (08:06)
[2024-07-14] MEDS: Lisinopril 10 MG Tablet PO (08:07)
[2024-07-14] MEDS: Senna/Docusate Sodium 1 Tablet 2 TABLET PO ×2 (08:07→20:20)
[2024-07-14] MEDS: Aspirin 81 MG TAB.CHEW PO (08:07)
[2024-07-14] MEDS: Ascorbic Acid 500 MG Tablet PO (08:07)
[2024-07-14] MEDS: amLODIPine 5 MG Tablet PO (08:07)
[2024-07-14] MEDS: Cyanocobalamin 500 MCG Tablet PO (08:08)
[2024-07-14 08:14] VITALS: BMI 24.8
--- NOTE | 2024-07-14 16:00 | CASEMGMT ---
Social Work SW met with dtr to discuss DC plans and answer questions. Throughout conversation, dtr had significant difficulty comprehending the insurance information and discharge recommendations. IDT recommending 24/7 supervision for safety, high fall risk d/t frequent loss of balance, and dizziness. Explained pt can physical complete all tasks, but is needing SBA-CGA when STS or ambulating. SW explained Medicare issued DC from IRU 07/19. Educated to appeal right options and the official IMM will be provided on 07/17, per protocol. Explained financial liability if appeal is lost or not received prior to DC date. Dtr denied filing an appeal with the financial liability risk. Dtr inquired about the neurologist appt on 07/25, and questioned how pt can be DC'd prior to appt; also questioning how the pt was not seen by a neurologist during stay. SW provided explanation to best of scope, that neurologist does not impact DC recommendations, and IRU Receiver/Laborer has provided thorough care for pt's need on unit. Pt will f/u per dx of CVA for ongoing needs. SW educated d/t pt's needs, pt can return home with support. Educated and provided resources for private duty home care, [facility], ERS and MOW. Dtr stated pt lives in [place] and will not attend a [facility] adult day center. SW offered for dtr to review resources within [facility]. Dtr stated pt does not like people in her home. SW educated to AL or SNF. SW educated to skilled HHC is covered by Medicare about 2-3x/wk; nonskilled HHC is OOP cost; AL and SNF are OOP; Medicaid could cover SNF stay, if pt is eligible. Explained could cover initial part of SNF stay, but pt will need to meet criteria. Noted pt is supervised currently and there is a high probability pt will not meet skilled criteria for SNF. SW assisted in several different types of explanations to insurance coverage, specifically skilled services. Best explained as pt needing the skills of a nurse and therapist consistently. Dtr asked several clarifying questions, took notes, repeated back information, though still expressed confusion with information. Dtr explained brother usually handles 'this type of stuff'. SW asked if dtr was present at Team meeting. Dtr denied. SW explained this worker also had not received any communication from son. Dtr aware. SW assisted dtr and provided clear, concise, written explanation of options: included below for thoroughness. Dtr stated she will discuss with brother, but knows [pt] will not agree to any of this and will only want to be home, and not want anyone in her home. SW encouraged dtr to have conversation with pt for her to accept help in the home or DC to a facility. SW also noted that pt does not need to follow recommendations, and dtr would not be responsible for pt's decision. JORGE explained IDT is only making recommendations and the pt has the right to make the decision, regardless if it 'good or bad'. Dtr appreciated that viewpoint as she expressed concern that pt will want dtr to assist her at home, and dtr stated she works full-time, and does not want to assist pt. SW commended dtr to admitting to that, and there are other resources to provide that care to the pt, to allow the dtr to remain a family member. JORGE explained d/t DC being 07/19, dtr needs to contact this worker 07/17 AM with decision. Dtr expressed understanding to timeframe. SW will continue to follow. Options: 1.? Home ? hire caregivers for assistance (private duty home care list); [facility] during the day ? all [id number] cost a.? Medicare will cover skilled home health care, i.e. PT/OT/nursing, 2-3x/wk 2.? Assisted Living Facility ? furnished apartment for 30-90 days, or furnish the apartment at move-in ? [id number] cost (~6,000/mo) 3.? Nursing Facility ? the initial stay (~2 weeks) could be covered by Medicare. Otherwise, it would be an [id number] cost (~9,000/mo) Family coordinates homegoing services that are an [id number] cost. Social Work coordinates facility discharge or home with medical equipment and skilled home health care. Mony Pettit MSW SURFACE GRINDER
[2024-07-14 17:35] VITALS: BP 121/49; PULSE 62; RESP 16; TEMP 36.3; O2SAT 96
[2024-07-14] MEDS: Atorvastatin Calcium 40 MG Tablet PO (20:20)
[2024-07-14 21:35] VITALS: BP 118/62; PULSE 65; RESP 20; TEMP 36.6; O2SAT 94; BMI 24.8
[2024-07-15 03:35] VITALS: BP 116/47; PULSE 59; RESP 18; TEMP 36.7; O2SAT 93
[2024-07-15] MEDS: Meclizine 12.5 MG Tablet PO ×2 (05:35→14:39)
[2024-07-15] MEDS: Enoxaparin 40 MG/0.4 ML Syringe SC (07:03)
[2024-07-15] MEDS: Cyanocobalamin 500 MCG Tablet PO (09:11)
[2024-07-15] MEDS: Lisinopril 10 MG Tablet PO (09:11)
[2024-07-15] MEDS: amLODIPine 5 MG Tablet PO (09:11)
[2024-07-15] MEDS: Ascorbic Acid 500 MG Tablet PO (09:11)
[2024-07-15] MEDS: Cholecalciferol (VIT D3) 25 MCG TABLET (1,000 UNITS) 50 MCG PO (09:11)
[2024-07-15] MEDS: Aspirin 81 MG TAB.CHEW PO (09:12)
[2024-07-15] MEDS: Fluticasone/Salmeterol 232-14 Inhaler 1 PUFF INHALATION ×2 (09:12→20:15)
[2024-07-15] MEDS: Senna/Docusate Sodium 1 Tablet 2 TABLET PO (09:12)
[2024-07-15 13:22] VITALS: BMI 24.8
[2024-07-15 17:39] VITALS: BP 118/52; PULSE 68; RESP 16; TEMP 36.5; O2SAT 96
[2024-07-15] MEDS: Atorvastatin Calcium 40 MG Tablet PO (20:15)
[2024-07-15 21:14] VITALS: BMI 24.8
[2024-07-15 22:00] VITALS: PULSE 68; RESP 16; O2SAT 96
[2024-07-16] MEDS: Meclizine 12.5 MG Tablet PO ×2 (05:46→15:17)
[2024-07-16] MEDS: Enoxaparin 40 MG/0.4 ML Syringe SC (05:46)
[2024-07-16 06:00] VITALS: BP 115/53; PULSE 65; RESP 15; TEMP 36.6; O2SAT 94
[2024-07-16] MEDS: Senna/Docusate Sodium 1 Tablet 2 TABLET PO ×2 (10:50→21:31)
[2024-07-16] MEDS: Cholecalciferol (VIT D3) 25 MCG TABLET (1,000 UNITS) 50 MCG PO (10:50)
[2024-07-16] MEDS: Aspirin 81 MG TAB.CHEW PO (10:50)
[2024-07-16] MEDS: Cyanocobalamin 500 MCG Tablet PO (10:50)
[2024-07-16] MEDS: Lisinopril 10 MG Tablet PO (10:50)
[2024-07-16] MEDS: amLODIPine 5 MG Tablet PO (10:50)
[2024-07-16] MEDS: Ascorbic Acid 500 MG Tablet PO (10:51)
[2024-07-16] MEDS: Fluticasone/Salmeterol 232-14 Inhaler 1 PUFF INHALATION ×2 (10:54→21:30)
[2024-07-16 15:23] VITALS: BMI 24.8
[2024-07-16 18:00] VITALS: BP 129/51; PULSE 71; RESP 16; TEMP 36.2; O2SAT 97
[2024-07-16] MEDS: Atorvastatin Calcium 40 MG Tablet PO (21:31)
[2024-07-17] MEDS: Enoxaparin 40 MG/0.4 ML Syringe SC (05:02)
[2024-07-17] MEDS: Meclizine 12.5 MG Tablet PO ×2 (05:04→14:45)
[2024-07-17 05:06] VITALS: BP 112/50; PULSE 61; RESP 18; TEMP 36.7; O2SAT 94
[2024-07-17] MEDS: amLODIPine 5 MG Tablet PO (08:07)
[2024-07-17] MEDS: Aspirin 81 MG TAB.CHEW PO (08:07)
[2024-07-17] MEDS: Fluticasone/Salmeterol 232-14 Inhaler 1 PUFF INHALATION ×2 (08:07→21:19)
[2024-07-17] MEDS: Ascorbic Acid 500 MG Tablet PO (08:08)
[2024-07-17] MEDS: Cholecalciferol (VIT D3) 25 MCG TABLET (1,000 UNITS) 50 MCG PO (08:08)
[2024-07-17] MEDS: Cyanocobalamin 500 MCG Tablet PO (08:08)
[2024-07-17] MEDS: Lisinopril 10 MG Tablet PO (08:08)
[2024-07-17 08:29] VITALS: BP 105/60; PULSE 66
--- NOTE | 2024-07-17 09:00 | CASEMGMT ---
Social Work SW received call from dtr's LISBETH Estrella, on behalf of dtr to assist with clarification on information from meeting 07/14. SO asked several questions and acknowledged the written options provided to dtr. SO specifically asked about skilled vs skilled nursing criteria for Medicare coverage in a SNF. SO stated the family spoke with pt, who stated she does want to be home and does not want to pay for assistance, but family acknowledged her cognition is not the best. The family prefer pt DC to a SNF, as they cannot provide 24/7 care in the home. SW educated to best of ability the skilled vs skilled nursing criteria for SNF. Reiterated recommendations for DC. Throughout conversation, SO having difficulty comprehending information with several pauses and time to process information. SW offered for this worker to refer to SNFs, as this worker does not make determination on MC coverage, the SNF can review information. SW offered to receive pt's financial information to assess for YONI eligibility, as that is the only financial assistance for SNF - AL and private duty aides are OOP cost - there is no initial assistance provided from [facility]. SO to speak with family on conversation and update this worker on outcome. time spent: 20 minutes - SW received call from pt's son Alexey, within minutes of ending prior conversation with LISBETH Estrella. Son inquired about DC plans for pt and insurance coverage. SW explained this worker just ended a call with Sameer. Son inquired what that conversation consisted of before he ask his questions. SW explained that was a 20-minute conversation and offered for son to speak with Sameer and if there are further questions, this worker can assist further. Son stated, well I'll make it easy for you. we would like a referral to [facility]. I spoke with Bekah, and she is expecting your referral through the portal. SW agreed to make referral to [facility]. Inquired if does not approve skilled services, if the pt would pay OOP or apply for YONI. Son replied, we will pursue other options if she isn't accepted. SW agreed to place referral and notify son of outcome. - JORGE phoned Bekah at [facility] to provide explanation of referral. SW provided brief LOF of pt and IDT's recommendation for 24/7 supervision. Bekah replied before this worker completed explanation, is she even going to qualify for skilled services?. SW agreed as this was the concern from this worker and conversation with family, but family having difficulty understanding insurance coverage. Bekah agreed to review referral and notify this worker of coverage/acceptance. SW appreciative. Referral sent to [facility] via [employer]. - SW provided verbal handoff to MD. Will await outcome. Mony Pettit CASINO GAMING WORKER TRIMMER MEAT
--- NOTE | 2024-07-17 09:17 | PN_ITS ---
Subjective Subjective Pt is an 89 YO F admitted to the acute inpt unit on 07/06/2024 from [facility] in [place] for acute right cerebellar ischemic CVA following an elective cardiac catheterization. Cardiac cath revealed nonobstructive coronary artery disease. Past medical history is significant for COPD, mitral valve regurgitation, nonobstructive coronary artery disease, intracerebral aneurysm x 2, hypothyroidism, hypertension, former tobacco dependence, dyslipidemia, congestive heart failure with preserved ejection fraction, presbycusis and chronic renal failure stage IIIa. NIHSS was 0 at admission to rehab. Postcardiac cath the NIHSS was 2. Modified [place] score was 4 at presentation to rehab. Was living alone prior to the recent stroke and independent with ADL's and was driving. 42/50 on BCAT. No dysphagia. Afebrile VSS -blood pressure is within goal. Heart rate is within normal limits. Maintaining appropriate oxygen saturation on -94 to 97% on room air Oral intake - FOOD good FLUIDS fair Weight has been stable since admission. Discussed with nursing - no problems that need addressed Reviewed the THERAPY notes Medication list reviewed. She is on meclizine twice daily. She is on aspirin once daily. Blood pressure is controlled with amlodipine 5 mg daily and lisinopril 10 mg daily. She is on Lovenox for DVT prophylaxis. Alert and oriented. Denies dizziness, lightheadedness, vertigo, cephalgia, chest pain, palpitations, nausea/vomiting/abdominal pain, dysuria and calf tenderness. She has a frog in her throat today and is clearing her throat frequently. She tells me that her breathing is status quo. Normally at home she uses an albuterol aerosol 3-4 times daily but has not been on aerosol treatments while in rehab. She states her breathing is about the same as it usually is even without the albuterol aerosols. Realizes she has difficulty hearing. Objective Data Objective Data Vital Signs: Vital Signs Temp Pulse Resp BP Pulse Ox O2 Del Method 98.1 F 66 18 105/60 94 Room Air 07/17/24 05:06 07/17/24 08:29 07/17/24 05:06 07/17/24 08:29 07/17/24 05:06 07/17/24 05:06 Oxygen Delivery Method Room Air Weight: 127 lb 6.835 oz Body Mass Index (BMI) 24.8 Intake & Output: Intake and Output for Last 24 Hours 07/15/24 07/16/24 07/17/24 23:59 23:59 23:59 Intake Total 1235 / 1235 1000 / 1350 650 / 650 Output Total 1050 / 1050 1550 / 1550 420 / 420 Balance 185 / 185 -550 / -200 230 / 230 Lab / Micro Data 07/17/24 11:39 07/17/24 11:39 Physical Exam Const alert, oriented x3 and no apparent distress Constitutional Narrative: Pleasant and appropriate. Clearing her throat often. Denies ST. General Appearance: cooperative HEENT HEENT Narrative: Posterior pharynx is a little reddened with no exudate. She is having some postnasal drip. Mouth: dry mucous membranes Neck supple Resp normal respiratory effort, normal air movement and clear to auscultation bilaterally Effort and Inspection: Negative for tachypneic or respiratory distress Cardio regular rate, regular rhythm, no murmurs, no rub and no gallops Cardio Narrative: No ectopy GI normal to inspection, nondistended, normoactive bowel sounds, soft to palpation and non-tender GI Narrative: No guarding with palpation Extremity no calf tenderness General Extremity: Negative for edema Skin Rashes: no rashes Psych affect normal Psych Narrative: Making good eye contact with me and is engaged. Appearance: appropriate Attitude: No agitated Activity / Motor Behavior: Negative for restless Assessment & Plan Assessment/Plan (1) Debility: (2) Stroke/cerebrovascular accident: QUALIFIERS: CVA mechanism: embolism Precerebral and cerebral artery: unspecified cerebral artery Qualified Code(s): I63.40 - Cerebral infarction due to embolism of unspecified cerebral artery (3) Disequilibrium: (4) Vertigo: (5) Mitral regurgitation: QUALIFIERS: Cardiac valve disease etiology: nonrheumatic Q ualified Code(s): I34.0 - Nonrheumatic mitral (valve) insufficiency (6) Hypothyroidism: QUALIFIERS: Hypothyroidism type: acquired Qualified Code(s): E 03.9 - Hypothyroidism, unspecified (7) COPD (chronic obstructive pulmonary disease): (8) Chronic kidney disease, stage 3a: (9) GERD (gastroesophageal reflux disease): QUALIFIERS: Esophagitis presence: without esophagitis Qualified Code(s): K21.9 - Gastro-esophageal reflux disease without esophagitis (10) Intracranial aneurysm: (11) Hyperlipidemia: QUALIFIERS: Hyperlipidemia type: unspecified Qualified Code(s): E 78.5 - Hyperlipidemia, unspecified (12) (HFpEF) heart failure with preserved ejection fraction: QUALIFIERS: Heart failure chronicity: chronic Qualified Code(s): I50.32 - Chronic diastolic (congestive) heart failure PLAN: Plan 1. Continue therapy 2. BMP and HH today 3. Check a pulse ox on room air at rest and after ambulation 4. Orthostatic vital signs today. Charges/Coding Visit Charges Inpatient E&M: 94452 Subs Hosp L2
[2024-07-17 10:40] VITALS: BP 102/47; BP 115/44; BP 122/47; PULSE 67; PULSE 69; PULSE 72
--- NOTE | 2024-07-17 10:41 | NURSING ---
Oxygen level at room air resting was 96% and after a short ambulation oxygen level checked and 92% room air. Patient denies SOB.
[2024-07-17 11:09] VITALS: BMI 24.8
[2024-07-17 12:10] LABS: Hematocrit 44.3 % (37-47); Hemoglobin 14.1 g/dL (12.0-15.0)
[2024-07-17 12:52] LABS: Anion Gap 11 (5-15); BUN 30 mg/dL (4-19); BUN/Creat Ratio 25.8 RATIO (10-20); Carbon Dioxide 25.8 mmol/L (21.0-32.0); Chloride 98 mmol/L (98-108); Creatinine, Serum 1.18 mg/dL (0.70-1.20); EST Glomerular Filtration Rate 45 (>60); Estimated Creatinine Clearance 26.74 ml/min (50-250); Glucose 82 mg/dL (70-99); Potassium 4.7 mmol/L (3.3-5.1); Sodium Level 134 mmol/L (133-145)
--- NOTE | 2024-07-17 14:56 | CASEMGMT ---
Social Work [facility] cannot accept for skilled services. - JORGE spoke with IDT to receive any additional updates. IDT report pt has improved and are now recommending check-in twice daily and oversee medications. - JORGE phoned son to update on above. Son stated he spoke with [facility] also, and can assist pt with check-ins and med management at home. Son stated he prefers pt use [facility] where they can prepackaged her medications. SW to update nursing. SW requested to coordinate skilled HHC or OP therapy. Son prefers HHC, and [facility]. SW educated that is a nonskilled HHC agencies. SW offered to send son list of skilled HHC agencies within geographical area, [place] with insurance, that include quality and resource data via nodishes.[employer]uk guide. Noted that list was provided to sister on Wednesday. Son confirmed he has a copy, will review it, and notify this worker with choices. SW confirmed pt will need a FWW and this worker will coordinate. Son to transport at [place]. Son appreciative. - JORGE sent referral to [facility] via nodishes[email or web address]. Plan: [place] home 07/19, HHC PT/OT/ST/SN, FWW Mony Pettit CARE PROCESS MANAGER PURCHASING EXPEDITOR
--- NOTE | 2024-07-17 16:08 | CASEMGMT ---
Social Work Son returned call with [facility] preferences - [facility] and [facility]. SW sent referrals via [employer]. - [facility] can accept. Will await outcome from [facility]. Mony Pettit NATUROPATHIC PHYSICIAN CUP SETTER LOCKSTITCH
[2024-07-17 17:13] VITALS: BP 126/46; PULSE 70; RESP 18; TEMP 36.2; O2SAT 97
[2024-07-17] MEDS: Atorvastatin Calcium 40 MG Tablet PO (21:19)
[2024-07-17 22:41] VITALS: BMI 24.8
[2024-07-18] MEDS: Enoxaparin 40 MG/0.4 ML Syringe SC (05:46)
[2024-07-18] MEDS: Meclizine 12.5 MG Tablet PO ×2 (05:46→15:20)
[2024-07-18 06:00] VITALS: BP 153/60; PULSE 64; RESP 16; TEMP 36.4; O2SAT 95
[2024-07-18] MEDS: Cholecalciferol (VIT D3) 25 MCG TABLET (1,000 UNITS) 50 MCG PO (08:32)
[2024-07-18] MEDS: amLODIPine 5 MG Tablet PO (08:32)
[2024-07-18] MEDS: Aspirin 81 MG TAB.CHEW PO (08:32)
[2024-07-18] MEDS: Fluticasone/Salmeterol 232-14 Inhaler 1 PUFF INHALATION ×2 (08:32→21:00)
[2024-07-18] MEDS: Lisinopril 10 MG Tablet PO (08:33)
[2024-07-18] MEDS: Cyanocobalamin 500 MCG Tablet PO (08:33)
[2024-07-18] MEDS: Ascorbic Acid 500 MG Tablet PO (08:33)
[2024-07-18 10:53] VITALS: BMI 24.8
--- NOTE | 2024-07-18 11:10 | CASEMGMT ---
Social Work JORGE phoned son to updated on [facility] acceptance and no response from [facility]. Son agreed to [facility]. SW reminded son of FWW being delivered to pts room prior to DC, recommendations for ERS and Driving Rehab program, all resources this worker provided to sister. Son confirmed and stated the family decided to have the pt see the neurologist for his recommendations on driving after that point. SW accepted and will not send referral to [facility]. Son appreciative. JORGE updated [facility]. Mony Pettit YOUTH PROGRAM DIRECTOR ENERGY AND CONSERVATION TECHNICIAN
--- NOTE | 2024-07-18 16:35 | DCINST_ITS ---
Discharge Instructions Diet Discharge Diet: - (Low-fat, low-salt.) DC O2, CPAP, BIPAP needs Home O2 Discharge instructions: No Dressing / Incision Discharge Activity: May Not Drive (we are recommending you attend a drivers rehabilitation evaluation prior to resuming driving to make sure you will be safe to drive. ), May Shower and Use Walker Weight Bearing Status: Full weight bearing Keep extremity elevated above heart level: Legs (elevate your legs when you are seated to help prevent swelling in the ankles. e) Dressing / Incision Call your doctor if you observe: Fever of 101 or Higher, Shortness of breath, Dizziness, Fainting spells, Swelling in the ankles, Chest pain, Increased palpitations (irregular heartbeat), Calf discomfort, Uncontrolled pain and - (STROKE symptoms: facial droop, slurred speech, inability to get words out, weakness on 1 side of the body and not the other, numbness on 1 side of the body and not the other, inability to maintain your balance sitting or standing, vertigo. ) Follow Up Care Please Follow Up With: Jacquie Mosher MD When: there are appts listed later in this document. You have 3 scheduled. 1 with your PCP, 1 with neurology and 1 with cardiology. Test Results: Test results from this visit will be discussed in further detail at your follow- up appointment, if applicable. Pending Tests Upon Discharge: none Discharge Plan Admission Admit Date/Time: 07/06/24 16:55 Primary Reason for Your Visit: Post stroke debility Attending Provider: Sona Levin Primary Care Provider: Jacquie Mosher Consulting Providers: Harrison Brooke Chi Instructions Patient Instructions: Stroke Driving Afterward, Hypertension Stroke Link, Risk Factors for Stroke Additional Instructions / Restrictions: 1. Sometimes when patients have a cardiac catheterization they are found to have some plaque in the arteries of the heart. Plaque is a build up of fat and other stuff (like sludge from smoking or calcium from uncontrolled high BP) that adheres to the wall of an artery. When they do the catheterization a piece of plaque can break off and go to the brain and cause a stroke. I suspect this is what happened with you. To prevent plaque from building up in the arteries in your body we need to control BP, control your cholesterol and stop smoking. You have already stopped smoking and that is GREAT. You are on medications to help prevent more strokes and plaque formation going forward. It is important to take these medications as prescribed. do NOT stop taking a medication without talking with your doctor. If you think you are having a side effect to a medication talk with your doctor about it.......sometimes a different medication can be used. 2. You had a stroke in the area of the brain called the cerebellum. This area has a lot to do with balance and equilibrium and also with swallowing. Cerebellar strokes are also associated with vertigo....... your are taking a drug called Meclizine twice a day to prevent vertigo. You may be able to get off this medication in the future. Trouble with balance makes you unsteady when walking. Using a walker or a can helps you to maintain balance. It requires a lot more exertion to maintain your balance artery a stroke in the cerebellum and you get winded more easily. For now you will need to use the walker. You may be able to progress to a cane with more therapy. The therapists will let you know when you are safe to try a cane. canes an walkers help prevent falls. Falls can lead to hip and back fractures, rtuh when you are older and have bone loss due to aging. Stay safe and use the walker. 3. Your BP has been looking good on the medication you are taking. You are taking 2 blood pressure medications. These medications are amlodipine and lisinopril. You will need to continue taking these at discharge you are on a medication called atorvastatin (he also called Lipitor) to keep the cholesterol controlled. The goals to prevent future strokes include keeping the blood pressure less than 130/80 and keeping the LDL (bad cholesterol) 70 or less. You will need to have your cholesterol and a liver panel rechecked in [address] Mosher can order this for you. 4. If you or your family have any questions after you leave rehab please do not hesitate to call me. OFFICE: [phone] CELL: [phone] NURSES STATION ON REHAB: [phone] Discharge Orders/Prescriptions Prescriptions: New meclizine 12.5 mg Tablet 12.5 mg PO BID@0600,1400 Qty: 60 0RF acetaminophen 500 mg Tablet 1,000 mg PO Q8H PRN PRN (Reason: Pain Score 1-10) Qty: 1 0RF Rx Instructions: Take 2 tablets every 8 hours as needed for pain. Continued ascorbic acid (vitamin C) 500 mg capsule 500 mg PO DAILY vitamin B complex [Vitamins B Complex] Capsule 1 cap PO DAILY cholecalciferol (vitamin D3) 50 mcg (2,000 unit) capsule 50 mcg PO DAILY albuterol sulfate 2.5 mg /3 mL (0.083 %) solution for nebulization 2.5 mg inhalation 4X/DAY PRN PRN (Reason: wheezing) Qty: 120 0RF amlodipine 5 mg tablet 5 mg PO DAILY Qty: 30 0RF lisinopril 10 mg tablet 10 mg PO DAILY Qty: 30 0RF rosuvastatin [Crestor] 20 mg tablet 20 mg PO DAILY Qty: 30 0RF fluticasone propion-salmeterol [Advair HFA] 230-21 mcg/actuation HFA aerosol inhaler 2 puff inhalation BID Qty: 1 0RF aspirin 81 mg capsule 81 mg PO DAILY Qty: 1 0RF Rx Instructions: You will need to take this for the rest of your life. Discontinued enoxaparin [Lovenox] 40 mg/0.4 mL syringe 40 mg subcut DAILY Referrals / Follow Up: Jacquie Mosher MD [Primary Care Provider] - 07/31/24 8:20 am Alexy Barnes MD [Non-Staff] - 08/14/24 2:30 pm Mekhi Carrizales MD [Non-Staff -Ordering Privileges] - 07/25/24 10:30 am () Disposition Disposition (needs filled in before D/C Order can be placed): Home Health Service
[2024-07-18 18:00] VITALS: BP 139/56; PULSE 63; RESP 16; TEMP 36.7; O2SAT 99
[2024-07-18] MEDS: Atorvastatin Calcium 40 MG Tablet PO (21:00)
[2024-07-19 00:51] VITALS: BMI 24.8
[2024-07-19 06:00] VITALS: BP 128/50; PULSE 61; RESP 16; TEMP 36.7; O2SAT 94; BMI 26.3
[2024-07-19] MEDS: Meclizine 12.5 MG Tablet PO (06:06)
[2024-07-19] MEDS: Enoxaparin 40 MG/0.4 ML Syringe SC (06:06)
[2024-07-19] MEDS: Lisinopril 10 MG Tablet PO (10:11)
[2024-07-19] MEDS: Cyanocobalamin 500 MCG Tablet PO (10:11)
[2024-07-19] MEDS: amLODIPine 5 MG Tablet PO (10:11)
[2024-07-19] MEDS: Ascorbic Acid 500 MG Tablet PO (10:11)
[2024-07-19] MEDS: Aspirin 81 MG TAB.CHEW PO (10:11)
[2024-07-19] MEDS: Fluticasone/Salmeterol 232-14 Inhaler 1 PUFF INHALATION (10:12)
[2024-07-19] MEDS: Cholecalciferol (VIT D3) 25 MCG TABLET (1,000 UNITS) 50 MCG PO (10:12)
[2024-07-19 10:18] VITALS: BP 122/60; PULSE 79
[2024-07-19 10:35] VITALS: BMI 26.3
--- NOTE | 2024-07-19 10:43 | EX.DISCHREH ---
Providers Date of Admission: 07/06/24 Date of Discharge: 07/19/24 Primary Care Physician: Dr. Jacquie Mosher MD Reason For Visit: CVA Diagnosis Discharge Diagnosis (1) Debility: Status: Acute Code(s): R53.81 - Other malaise (2) Stroke/cerebrovascular accident: Status: Acute Code(s): I63.9 - Cerebral infarction, unspecified Qualifiers: CVA mechanism: embolism Precerebral and cerebral artery: unspecified cerebral artery Qualified Code(s): I63.40 - Cerebral infarction due to embolism of unspecified cerebral artery Plan: R cerebellum post cardiac cath. (3) Disequilibrium: Status: Acute Code(s): R42 - Dizziness and giddiness (4) Vertigo: Status: Acute Code(s): R42 - Dizziness and giddiness Plan: Controlled with Meclizine. (5) Mitral regurgitation: Status: Chronic Code(s): I34.0 - Nonrheumatic mitral (valve) insufficiency Qualifiers: Cardiac valve disease etiology: nonrheumatic Qualified Code(s): I34.0 - Nonrheumatic mitral (valve) insufficiency (6) Hypothyroidism: Status: Chronic Code(s): E03.9 - Hypothyroidism, unspecified Qualifiers: Hypothyroidism type: acquired Qualified Code(s): E03.9 - Hypothyroidism, unspecified (7) COPD (chronic obstructive pulmonary disease): Status: Chronic Code(s): J44.9 - Chronic obstructive pulmonary disease, unspecified Qualifiers: COPD type: unspecified COPD Qualified Code(s): J44.9 - Chronic obstructive pulmonary disease, unspecified (8) Chronic kidney disease, stage 3a: Status: Chronic Code(s): N18.31 - Chronic kidney disease, stage 3a (9) GERD (gastroesophageal reflux disease): Status: Chronic Code(s): K21.9 - Gastro-esophageal reflux disease without esophagitis Qualifiers: Esophagitis presence: without esophagitis Qualified Code(s): K21.9 - Gastro-esophageal reflux disease without esophagitis (10) Intracranial aneurysm: Status: Chronic Code(s): I67.1 - Cerebral aneurysm, nonruptured (11) Hyperlipidemia: Status: Chronic Code(s): E78.5 - Hyperlipidemia, unspecified Qualifiers: Hyperlipidemia type: unspecified Qualified Code(s): E78.5 - Hyperlipidemia, unspecified (12) (HFpEF) heart failure with preserved ejection fraction: Status: Chronic Code(s): I50.30 - Unspecified diastolic (congestive) heart failure Qualifiers: Heart failure chronicity: chronic Qualified Code(s): I50.32 - Chronic diastolic (congestive) heart failure Plan 1. DC home today. 2. [facility] 3. [facility] 4. Son refused referral to [place] drivers rehab. I strongly recommended to pt that I feel she should be evaluated prior to resuming driving. I completed paperwork to suspend drivers license but, may be able to drive again after more therapy. Re-eval in 3-6 months. 5. RX's faxed to [facility] pharmacy in [place] - they will dispense in a med pack 6. Follow up appts have been scheduled for her. Medications at Discharge Home Medications ascorbic acid (vitamin C) 500 mg capsule 500 mg PO DAILY Supplement 07/06/24 cholecalciferol (vitamin D3) 50 mcg (2,000 unit) capsule 50 mcg PO DAILY supplement 07/06/24 vitamin B complex (Vitamins B Complex capsule) 1 cap PO DAILY supplement 07/06/24 acetaminophen 500 mg tablet 1,000 mg (2 x 500 mg) PO Q8H PRN PRN Pain Score 1-10 #1 TAB 07/18/24 albuterol sulfate 2.5 mg/3 mL (0.083 %) solution for nebulization 2.5 mg (3 mL) inhalation 4X/DAY PRN PRN wheezing #120 mL 07/18/24 amlodipine 5 mg tablet 5 mg PO DAILY BP #30 tabs 07/18/24 aspirin 81 mg capsule 81 mg PO DAILY Heart health #1 cap 07/18/24 fluticasone propionate 230 mcg-salmeterol 21 mcg/actuation HFA inhaler (Advair HFA) 2 puff inhalation BID SOB #1 g 07/18/24 lisinopril 10 mg tablet 10 mg PO DAILY BP #30 tabs 07/18/24 meclizine 12.5 mg tablet 12.5 mg PO BID@0600,1400 #60 tabs 07/18/24 rosuvastatin 20 mg tablet (Crestor) 20 mg PO DAILY cholesterol #30 tabs 07/18/24 Hospital Course Operations None Procedures None Summary of Care Provided Minutes Spent on Discharge: 38 Hospital Course: Pt is an 89 YO F admitted to the acute inpt unit on 07/06/2024 from [facility] in [place] for acute right cerebellar ischemic CVA following an elective cardiac catheterization. Cardiac cath revealed nonobstructive coronary artery disease. Past medical history is significant for COPD, mitral valve regurgitation, nonobstructive coronary artery disease, intracerebral aneurysm x 2, hypothyroidism, hypertension, former tobacco dependence, dyslipidemia, congestive heart failure with preserved ejection fraction, presbycusis and chronic renal failure stage IIIa. NIHSS was 0 at admission to rehab. Postcardiac cath the NIHSS was 2. Modified Tate score was 4 at presentation to rehab. Was living alone prior to the recent stroke and independent with ADL's and was driving. 42/50 on BCAT indicating mild cognitive dysfunction. No dysphagia. + vertigo which is controlled with 12.5 mg BID of Meclizine. Progressed well with rehab. At the time of DC her modified Ashok score is 3, down from 4 at admission. A modified Ashok score of 3 is consistent with moderate disability. She has ambulated up to 390 feet on various surfaces with a front wheeled walker at contact-guard assist. Her status was changed to modified independent prior to discharge and she has ambulated up to 165 feet independently on the rehab floor and in her room. She is able to ascend/descend two 6 inch steps with 1 handrail at contact-guard assist. She is independent with eating and supervision/set up for grooming, bathing, upper body dressing, lower body dressing, toileting and toilet transfer. She is standby assist for tub/shower transfer. Alena was discharged on 07/19/2024 to home and will have home health care with [facility]. DME included a front wheel walker. Follow-up appointments were scheduled with Dr. Jacquie Mosher (PCP), Dr. Mekhi Carrizales (neurology) and Dr. Alexy Barnes (cardiology). I recommended she attend a drivers rehab evaluation at [facility] in [place] when she is ready to start driving again. Alena's son spoke to the and did not want her to attend the evaluation. Due to age, recent stoke, vertigo, vision problems, presbycusis and cognitive dysfunction I feel strongly that she needs a thorough evaluation by a certified Drivers rehab program prior to resuming driving. Paperwork was completed to suspend her driving privileges with re-eval in 3-6 months. She will need to have a liver panel and lipid panel in 4-6 weeks since she is now taking a statin. She has had no adverse reactions to any of the meds administered while on rehab. Vertigo is well controlled with Meclizine 12.5 mg BID. Prescriptions for her medications were faxed to [facility] in [place] and they will provide the medications in a med pack. Physical Exam Const alert, oriented x3 and no apparent distress Constitutional Narrative: Pleasant and appropriate. Clearing her throat often. Denies ST. Having post nasal drip. General Appearance: cooperative HEENT HEENT Narrative: Posterior pharynx is a little reddened with no exudate. She is having some postnasal drip. No thrush. She is hard of hearing. Mouth: dry mucous membranes Eyes PERRL, EOMs intact bilaterally, conjunctivae normal and no scleral icterus Eyes Narrative: No nystagmus. No DC from the eyes. She reports she is not seeing as well as she was prior to the stroke. General Eye: normal appearance of both eyes and normal light reflex Neck supple Chest Chest: symmetrical chest wall rise Resp normal respiratory effort, normal air movement and clear to auscultation bilaterally Effort and Inspection: Negative for tachypneic or respiratory distress Cardio regular rate, regular rhythm, no murmurs, no rub and no gallops Cardio Narrative: No ectopy GI normal to inspection, nondistended, normoactive bowel sounds, soft to palpation and non-tender GI Narrative: No guarding with palpation Narrative: Denies dysuria, urinary frequency and urinary hesitancy. Extremity no calf tenderness General Extremity: Negative for edema Skin Rashes: no rashes Wound Narrative: No wounds or breakdown. Neuro oriented x3, CN's II-XII intact bilaterally, moves all extremities, no focal motor deficits and no sensory deficits noted Neuro Narrative: No ataxia, no extinction. No dysarthria, no aphasia. Romberg is mildly positive. Psych affect normal Psych Narrative: Making good eye contact with me and is engaged. Appearance: appropriate Attitude: No agitated Activity / Motor Behavior: Negative for restless Weight / BMI Weight Weight: 134 lb Body Mass Index (BMI) 26.3 ABG / Lab / Microbiology Data 07/17/24 11:39 07/17/24 11:39 Indicators for Scoring Admitted with or Primary Diagnosis of CVA/Stroke: Yes Hx of CVA/Stroke: Yes Modified Ashok Score MRS Score at time of Evaluation: 3-Moderate disability NIHSS NIHSS 1a. Level of Consciousness: 0 - Alert; keenly responsive 1b. LOC Questions: 0 - Answers BOTH questions correctly 1c. LOC Commands: 0 - Performs BOTH tasks correctly 2. Best Gaze: 1 - Normal 3. Visual: 0 - No visual loss (blurry vision......feels it is worse since the stroke but, no visual field cuts. ) 4. Facial Palsy: 0 - Normal symmetrical movements 5a. Left Arm: 0 - No drift; arm holds 90 (or 45) degrees for full 10 seconds 5b. Right Arm: 0 - No drift; arm holds 90 (or 45) degrees for full 10 seconds 6a. Left Le - No drift; leg holds 30-degree position for full 5 seconds 6b. Right Le - No drift; leg holds 30-degree position for full 5 seconds 7. Limb Ataxia: 0 - Absent 8. Sensory: 0 - Normal; no sensory loss 9. Best Language: 0 - No aphasia; normal 10. Dysarthria: 0 - Normal 11. Extinction and Inattention: 0 - No abnormality Total: 0 Stroke Questions Stroke Team Activated: No D/C Instructions Discharge Diet: - (Low-fat, low-salt.) Weight Bearing Status: Full weight bearing Keep extremity elevated above heart level: Legs (elevate your legs when you are seated to help prevent swelling in the ankles. e) Call your doctor if you observe: Fever of 101 or Higher, Shortness of breath, Dizziness, Fainting spells, Swelling in the ankles, Chest pain, Increased palpitations (irregular heartbeat), Calf discomfort, Uncontrolled pain and - (STROKE symptoms: facial droop, slurred speech, inability to get words out, weakness on 1 side of the body and not the other, numbness on 1 side of the body and not the other, inability to maintain your balance sitting or standing, vertigo. ) DC O2, CPAP, BIPAP Needs RN Home O2 qualification: No Data to Display Home O2 Discharge instructions: No Pending Tests Upon Discharge: none Please Follow Up With: Jacquie Mosher MD When: there are appts listed later in this document. You have 3 scheduled. 1 with your PCP, 1 with neurology and 1 with cardiology. Meaningful Use Info Meaningful Use Meaningful Use Diagnoses (Choose all that apply): Ischemic CVA CVA Therapy Assessed for PT,OT and/or ST?: Yes Ischemic Stroke Antithrombotic order at d/c?: No Reason antithrombotic not ordered: Medical Contraindication (Has 2 known intracerebral aneurysms. Saw neurology in [place] and they did not recommend an anti-platelet agent. ) Dx of Atrial fib/flutter?: No Anticoagulant at discharge?: No Reason anticoagulant not ordered: Treatment not Indicated Statin Dosing Therapy Reference: STATIN DOSE THERAPY REFERENCE: * Patients > 75 years receive moderate or high dose statin therapy. * Patients 75 years or YOUNGER should receive HIGH intensity statin dose unless contraindicated. You will be required to document reason for non-treatment if statin daily dose does not meet guidelines. HIGH DOSE STATIN THERAPY DAILY Atorvastatin > than or = to 40 mg Rosuvastatin > than or = to 20 mg Amlodipine + Atorvastatin > than or = to 2.5/40 mg Ezetimibe + Simvastatin 10/80 mg Simvastatin 80mg Statins at discharge?: Yes Primary Dx Acute Ischemic CVA?: Yes Discharge Plan Admission Admit Date/Time: 07/06/24 16:55 Primary Reason for Your Visit: Post stroke debility Attending Provider: Sona Levin Primary Care Provider: Jacquie Mosher Consulting Providers: Harrison Brooke Chi Instructions Patient Instructions: Stroke Driving Afterward, Hypertension Stroke Link, Risk Factors for Stroke Additional Instructions / Restrictions: 1. Sometimes when patients have a cardiac catheterization they are found to have some plaque in the arteries of the heart. Plaque is a build up of fat and other stuff (like sludge from smoking or calcium from uncontrolled high BP) that adheres to the wall of an artery. When they do the catheterization a piece of plaque can break off and go to the brain and cause a stroke. I suspect this is what happened with you. To prevent plaque from building up in the arteries in your body we need to control BP, control your cholesterol and stop smoking. You have already stopped smoking and that is GREAT. You are on medications to help prevent more strokes and plaque formation going forward. It is important to take these medications as prescribed. do NOT stop taking a medication without talking with your doctor. If you think you are having a side effect to a medication talk with your doctor about it.......sometimes a different medication can be used. 2. You had a stroke in the area of the brain called the cerebellum. This area has a lot to do with balance and equilibrium and also with swallowing. Cerebellar strokes are also associated with vertigo....... your are taking a drug called Meclizine twice a day to prevent vertigo. You may be able to get off this medication in the future. Trouble with balance makes you unsteady when walking. Using a walker or a can helps you to maintain balance. It requires a lot more exertion to maintain your balance artery a stroke in the cerebellum and you get winded more easily. For now you will need to use the walker. You may be able to progress to a cane with more therapy. The therapists will let you know when you are safe to try a cane. canes an walkers help prevent falls. Falls can lead to hip and back fractures, ruth when you are older and have bone loss due to aging. Stay safe and use the walker. 3. Your BP has been looking good on the medication you are taking. You are taking 2 blood pressure medications. These medications are amlodipine and lisinopril. You will need to continue taking these at discharge you are on a medication called atorvastatin (he also called Lipitor) to keep the cholesterol controlled. The goals to prevent future strokes include keeping the blood pressure less than 130/80 and keeping the LDL (bad cholesterol) 70 or less. You will need to have your cholesterol and a liver panel rechecked in [address] Mosher can order this for you. 4. If you or your family have any questions after you leave rehab please do not hesitate to call me. OFFICE: [phone] CELL: [phone] NURSES STATION ON REHAB: [phone] Discharge Orders/Prescriptions Prescriptions: New meclizine 12.5 mg Tablet 12.5 mg PO BID@0600,1400 Qty: 60 0RF acetaminophen 500 mg Tablet 1,000 mg PO Q8H PRN PRN (Reason: Pain Score 1-10) Qty: 1 0RF Rx Instructions: Take 2 tablets every 8 hours as needed for pain. Continued ascorbic acid (vitamin C) 500 mg capsule 500 mg PO DAILY vitamin B complex [Vitamins B Complex] Capsule 1 cap PO DAILY cholecalciferol (vitamin D3) 50 mcg (2,000 unit) capsule 50 mcg PO DAILY albuterol sulfate 2.5 mg /3 mL (0.083 %) solution for nebulization 2.5 mg inhalation 4X/DAY PRN PRN (Reason: wheezing) Qty: 120 0RF amlodipine 5 mg tablet 5 mg PO DAILY Qty: 30 0RF lisinopril 10 mg tablet 10 mg PO DAILY Qty: 30 0RF rosuvastatin [Crestor] 20 mg tablet 20 mg PO DAILY Qty: 30 0RF fluticasone propion-salmeterol [Advair HFA] 230-21 mcg/actuation HFA aerosol inhaler 2 puff inhalation BID Qty: 1 0RF aspirin 81 mg capsule 81 mg PO DAILY Qty: 1 0RF Rx Instructions: You will need to take this for the rest of your life. Discontinued enoxaparin [Lovenox] 40 mg/0.4 mL syringe 40 mg subcut DAILY Referrals / Follow Up: Jacquie Mosher MD [Primary Care Provider] - 07/31/24 8:20 am Alexy Barnes MD [Non-Staff] - 08/14/24 2:30 pm Mekhi Carrizales MD [Non-Staff -Ordering Privileges] - 07/25/24 10:30 am () Disposition Disposition (needs filled in before D/C Order can be placed): Home Health Service
[2024-07-19 12:48] VITALS: BP 114/76; PULSE 70; RESP 18; TEMP 36.4; O2SAT 97
== END 2024-07-19 13:00 | disposition home health service (06) | DRG 57 ==
PROVIDERS: Admitting Provider Family Medicine Geriatric Medicine; PCP Internal Medicine; Referring Provider Family Medicine Geriatric Medicine; Visit Provider Internal Medicine
DX: I69.898 Other sequelae of other cerebrovascular disease (principal); I13.0 Hypertensive heart and chronic kidney disease with heart failure and stage 1 through stage 4 chronic kidney disease, or unspecified chronic kidney disease; I50.32 Chronic diastolic (congestive) heart failure; I67.1 Cerebral aneurysm, nonruptured; J44.9 Chronic obstructive pulmonary disease, unspecified; N18.31 Chronic kidney disease, stage 3a; I34.0 Nonrheumatic mitral (valve) insufficiency; H55.00 Unspecified nystagmus; E78.5 Hyperlipidemia, unspecified; K21.9 Gastro-esophageal reflux disease without esophagitis; I25.10 Atherosclerotic heart disease of native coronary artery without angina pectoris; I73.00 Raynaud's syndrome without gangrene; E53.8 Deficiency of other specified B group vitamins; E55.9 Vitamin D deficiency, unspecified; Z87.891 Personal history of nicotine dependence; Z79.82 Long term (current) use of aspirin; Z79.899 Other long term (current) drug therapy; Z79.51 Long term (current) use of inhaled steroids
CPT/HCPCS: 36415; 80048; 80053; 83735; 84100; 85014; 85018; 85025; 92507; 92523; 92610; 94668; 97110; 97112; 97116; 97129; 97130; 97162; 97166; 97530; 97535; 97802; 97803